=== PATIENT | male | born 1995 | race Caucasian/White ===

== ENCOUNTER 2021-10-12 19:03 | Inpatient (IN) ==
--- NOTE | 2021-10-12 19:21 | Emergency Department Note ---
History of Present Illness General Chief complaint: Dehydration Stated complaint: TRICEP& COLMENARES MUSCLE PAIN, DARK BROWN/BLACK URINE Time Seen by Provider: 10/12/21 19:14 History of Present Illness This is a 26-year-old male that presents to the emergency department via private vehicle with complaints of "triceps and pectoralis muscle pain, dark brown/black urine". The patient states that he had previously worked out quite regularly and then stopped for period of time. He then restarted exercising and notes that this past Friday he performed a fair amount of push-ups. He noted that he was sore but nothing out of the ordinary. This then progressed and is becoming worse as time progresses. He feels swelling in the pectoralis and tricep regions bilaterally. He notes that today just prior to arrival when he urinated the urine was extremely dark. He was concerned therefore prompting arrival here today. He denies any chest pain, shortness of breath or abdominal pain. He denies any pertinent past medical history or surgeries. He does note an Augmentin allergy. Home Medications Medication Instructions Recorded Confirmed Type acetaminophen 500 mg tablet 1,000 mg PO Q6H PRN 10/12/21 10/12/21 History (Tylenol Extra Strength) ibuprofen 200 mg tablet (Advil) 400 mg PO Q6H PRN 10/12/21 10/12/21 History Allergies Allergy/AdvReac Type Severity Reaction Status Date / Time amoxicillin [From Augmentin] Allergy Rash Verified 10/12/21 21:15 clavulanic acid Allergy Rash Verified 10/12/21 21:15 [From Augmentin] Past Med/Surg History Medical History No pertinent past medical history Surgical History No pertinent past surgical history Social History Smoking Status: Never smoker Preferred Language: Burkin[place] Feels Safe at Home: Yes Review of Systems A total of 10 systems reviewed and were otherwise negative Physical Exam Vital Signs Vital Signs - 24 hr 10/12/21 19:08 10/12/21 20:14 10/12/21 21:21 Temperature 36.3 C L Temperature Source Temporal Artery Scan Pulse Rate 77 Pulse Rate [Left Finger] 108 H 57 L Pulse Rhythm [Left Finger] Regular Regular Pulse Strength [Left Finger] Normal Normal Respiratory Rate 18 16 16 Respiratory Effort / Characteristics Non-Labored Spontaneous Non-Labored Non-Labored Respiratory Depth Normal Normal Normal Respiratory Pattern Regular Blood Pressure 154/93 H Blood Pressure [Right Arm] 139/91 Blood Pressure Mean 113 Blood Pressure Mean [Right Arm] 107 Blood Pressure Position Sitting Blood Pressure Position [Right Arm] Lying Pulse Oximetry 98 97 100 Oxygen Delivery Method Room Air Room Air Room Air Sepsis Recent Fever Within 48 Hours No Sepsis New/Unexplained Change in Mental Status N/A Sepsis Action Taken by Nursing No Action Required 10/12/21 22:18 Temperature Temperature Source Pulse Rate Pulse Rate [Left Finger] 65 Pulse Rhythm [Left Finger] Regular Pulse Strength [Left Finger] Normal Respiratory Rate 16 Respiratory Effort / Characteristics Non-Labored Respiratory Depth Normal Respiratory Pattern Blood Pressure Blood Pressure [Right Arm] 135/78 Blood Pressure Mean Blood Pressure Mean [Right Arm] 97 Blood Pressure Position Blood Pressure Position [Right Arm] Lying Pulse Oximetry 98 Oxygen Delivery Method Room Air Sepsis Recent Fever Within 48 Hours Sepsis New/Unexplained Change in Mental Status Sepsis Action Taken by Nursing VITAL SIGNS - Vital signs and nursing notes were reviewed. Stable and afebrile. GENERAL -26-year-old male appearing his stated age who is in no acute distress. Communicates well with provider and answers questions appropriately. SKIN - Without rashes. No meningeal or petechial rash. HEAD - NC/AT. EYES - Sclera anicteric. LUNGS - Chest wall symmetric without accessory muscle use, intercostals retractions, or central cyanosis. Normal vesicular breath sounds CTA B/L. No wheezes, rales, or rhonchi appreciated. CARDIAC - RRR with S1/S2. No murmur, rubs, or gallops appreciated. MUSCULOSKELETALthere is amount of edema noted to the pectoralis and triceps region beyond expected baseline. No evidence of compartment syndrome. Patient is well-perfused in the extremities. EXTREMITIES - No clubbing or peripheral cyanosis. NEUROLOGIC - Cranial nerves II through XII grossly intact. PSYCH - A&O, and cooperates fully with examiner. Pt is very pleasant and interacts well with examiner. Course Administered Medications Discontinued Medications Sodium Chloride (Nss 1000ml) 1,000 mls @ 999 mls/hr IV .Q1H1M LANNY Stop: 10/12/21 20:30 Last Infusion: 10/12/21 20:47 Dose: 0 mls/hr Documented by: [id number] Admin: 10/12/21 20:13 Dose: 999 mls/hr Documented by: [id number] Sodium Chloride (Nss 1000ml) 1,000 mls @ 999 mls/hr IV .Q1H1M LANNY Stop: 10/12/21 22:00 Last Infusion: 10/12/21 21:57 Dose: 0 mls/hr Documented by: [id number] Admin: 10/12/21 21:04 Dose: 999 mls/hr Documented by: [id number] Medical Decision Making Laboratory Data Result diagrams: 10/12/21 19:15 10/12/21 19:15 Lab Results 10/12/21 10/12/21 10/12/21 Range/Units 19:15 19:15 20:08 WBC 8.10 (4.8-10.8) K/uL RBC 5.15 (4.7-6.1) M/uL Hgb 15.4 (14.0-18.0) g/dL Hct 43.8 (42-52) % MCV 85.0 (80-100) fL MCH 29.9 (25-34) pg MCHC 35.2 (32-36) g/dL RDW Std Deviation 39.5 (36.4-46.3) fL RDW Coeff of Az[place] 12.8 (11.5-14.5) % Plt Count 270 (130-400) K/uL MPV 9.8 (7.4-10.4) fL Immature Gran % (Auto) 0.1 % Neut % (Auto) 50.3 % Lymph % (Auto) 40.5 % [place] % (Auto) 6.7 % Eos % (Auto) 2.3 % Baso % (Auto) 0.1 % Neut # (Auto) 4.07 (1.4-6.5) K/uL Lymph # (Auto) 3.28 (1.2-3.4) K/uL [place] # (Auto) 0.54 (0.11-0.59) K/uL Eos # (Auto) 0.19 (0-0.5) K/uL Baso # (Auto) 0.01 (0-0.2) K/uL Immature Gran # (Auto) 0.01 (0.00-0.02) K/uL Sodium 142 (136-145) mmol/L Potassium 3.7 (3.5-5.1) mmol/L Chloride 106 (98-107) mmol/L Carbon Dioxide 27 (21-32) mmol/L Anion Gap 9 (3-11) BUN 16 (6-23) mg/dl Creatinine 0.95 (0.6-1.4) mg/dl Est Cr Clr Drug Dosing 119.7 ml/min Est GFR ( Amer) 127.5 ml/min Est GFR (Non-Af Amer) 110.0 ml/min BUN/Creatinine Ratio 16.8 (10-20) Glucose 89 (70-99(Fasting)) mg/dl Calcium 9.5 (8.5-10.1) mg/dl Total Bilirubin 0.6 (0.2-1.0) mg/dl AST 685 H (13-39) U/L ALT 195 H (7-52) U/L Alkaline Phosphatase 74 (34-104) U/L Total Creatine Kinase 60772 H (30-223) U/L Total Protein 7.4 (6.0-8.3) gm/dl Albumin 4.8 (3.4-5.0) gm/dl Globulin 2.6 (2.5-4.0) gm/dl Albumin/Globulin Ratio 1.8 (0.9-2) Urine Color Urine Appearance (Clear) Urine pH (4.5-7.5) Ur Specific Harold (1.000-1.030) Urine Protein (Negative) Urine Glucose (UA) (Negative) Urine Ketones (Negative) Urine Blood (Negative) Urine Nitrite (Negative) Urine Bilirubin (Negative) Urine Urobilinogen (Negative) Ur Leukocyte Esterase (Negative) Urine WBC (Auto) (0-5) /hpf Urine RBC (Auto) (0-4) /hpf U Hyaline Cast (Auto) (0-5) /lpf U Epithel Cells (Auto) (0-5) /lpf Urine Bacteria (Auto) (Negative) SARS-CoV-2, RNA, NAAT NEGATIVE (NEGATIVE) 10/12/21 Range/Units 22:06 WBC (4.8-10.8) K/uL RBC (4.7-6.1) M/uL Hgb (14.0-18.0) g/dL Hct (42-52) % MCV (80-100) fL MCH (25-34) pg MCHC (32-36) g/dL RDW Std Deviation (36.4-46.3) fL RDW Coeff of Aziza (11.5-14.5) % Plt Count (130-400) K/uL MPV (7.4-10.4) fL Immature Gran % (Auto) % Neut % (Auto) % Lymph % (Auto) % [place] % (Auto) % Eos % (Auto) % Baso % (Auto) % Neut # (Auto) (1.4-6.5) K/uL Lymph # (Auto) (1.2-3.4) K/uL [place] # (Auto) (0.11-0.59) K/uL Eos # (Auto) (0-0.5) K/uL Baso # (Auto) (0-0.2) K/uL Immature Gran # (Auto) (0.00-0.02) K/uL Sodium (136-145) mmol/L Potassium (3.5-5.1) mmol/L Chloride (98-107) mmol/L Carbon Dioxide (21-32) mmol/L Anion Gap (3-11) BUN (6-23) mg/dl Creatinine (0.6-1.4) mg/dl Est Cr Clr Drug Dosing ml/min Est GFR ( Amer) ml/min Est GFR (Non-Af Amer) ml/min BUN/Creatinine Ratio (10-20) Glucose (70-99(Fasting)) mg/dl Calcium (8.5-10.1) mg/dl Total Bilirubin (0.2-1.0) mg/dl AST (13-39) U/L ALT (7-52) U/L Alkaline Phosphatase (34-104) U/L Total Creatine Kinase (30-223) U/L Total Protein (6.0-8.3) gm/dl Albumin (3.4-5.0) gm/dl Globulin (2.5-4.0) gm/dl Albumin/Globulin Ratio (0.9-2) Urine Color Yellow Urine Appearance Clear (Clear) Urine pH 5.5 (4.5-7.5) Ur Specific Harold 1.015 (1.000-1.030) Urine Protein 1+ H (Negative) Urine Glucose (UA) Negative (Negative) Urine Ketones Negative (Negative) Urine Blood 3+ H (Negative) Urine Nitrite Negative (Negative) Urine Bilirubin Negative (Negative) Urine Urobilinogen Negative (Negative) Ur Leukocyte Esterase Negative (Negative) Urine WBC (Auto) 1-5 (0-5) /hpf Urine RBC (Auto) 0-4 (0-4) /hpf U Hyaline Cast (Auto) 1-5 (0-5) /lpf U Epithel Cells (Auto) 5-10 H (0-5) /lpf Urine Bacteria (Auto) Negative (Negative) SARS-CoV-2, RNA, NAAT (NEGATIVE) MDM Narrative Patient was seen and evaluated as above in room D08 and then B02. Review was performed of nursing notes and vital signs. After obtaining a thorough history and physical examination the above work up was performed. Patient presents to us today status post a workout that was a few days ago now with continued and worsening pain in his musculature of the triceps and pectoralis region now with dark urine. Vital signs stable. He is nontoxic on examination. No evidence of compartment syndrome. Options of care were discussed with the patient. IV access was established. Labs were drawn. There is no evidence of kidney failure. There is elevation of [place] [address]. Urinalysis reveals 1+ protein, 3+ blood and 5-10 epithelial cells. Presentation and findings are consistent with that of rhabdomyolysis. I do believe that further evaluation and management in the inpatient setting is warranted. Covid testing negative. He was given IV fluids here in the ED. Case discussed with the hospitalist. Please refer to further documentation regarding his stay. GCS: 15 In the evaluation and treatment of this patient the following differential diagnoses were entertained: UTI, pyelonephritis, rhabdomyolysis, compartment syndrome, electrolyte disturbance, kidney failure, among others. Impression & Plan Rhabdomyolysis Discharge Plan Visit Data Chief Complaint: Dehydration Stated Complaint: TRICEP& COLMENARES MUSCLE PAIN, DARK BROWN/BLACK URINE ED Provider: Hema Leo ED Midlevel Provider: Gregory Villalba Discharge Problem: Rhabdomyolysis Patient Disposition: Admitted As Inpatient Condition: Good Forms Stand Alone Forms: My [facility] Prescriptions Prescriptions: No Action acetaminophen [Tylenol Extra Strength] 500 mg Tablet 1,000 mg PO Q6H PRN (Reason: Pain) RF: 0 ibuprofen [Advil] 200 mg Tablet 400 mg PO Q6H PRN (Reason: Pain) RF: 0 Referrals Referrals: PCP,NO [Primary Care Provider] -
[2021-10-12 19:29] LABS: Basophils # (auto) 0.01 K/uL (0-0.2); Basophils % (auto) 0.1 %; Eosinophils # (auto) 0.19 K/uL (0-0.5); Eosinophils % (auto) 2.3 %; Hematocrit (blood only) 43.8 % (42-52); Hemoglobin 15.4 g/dL (14.0-18.0); Immature Granulocytes # (auto) 0.01 K/uL (0.00-0.02); Immature Granulocytes % (auto) 0.1 %; Lymphocytes # (auto) 3.28 K/uL (1.2-3.4); Lymphocytes % (auto) 40.5 %; Mean Corpuscular Hemoglobin 29.9 pg (25-34); Mean Corpuscular Hgb Conc 35.2 g/dL (32-36); Mean Platelet Volume 9.8 fL (7.4-10.4); Monocytes # (auto) 0.54 K/uL (0.11-0.59); Monocytes % (auto) 6.7 %; Neutrophils # (auto) 4.07 K/uL (1.4-6.5); Neutrophils % (auto) 50.3 %; Platelet Count 270 K/uL (130-400); RDW Coefficient of Variation 12.8 % (11.5-14.5); RDW Standard Deviation 39.5 fL (36.4-46.3); Red Blood Count 5.15 M/uL (4.7-6.1)
[2021-10-12] MEDS ORDERED: SODIUM CHLORIDE 0.9% 1000ML 1,000 ML IV SCH ×2 (19:30→21:00)
[2021-10-12 19:47] LABS: BUN Creatinine Ratio 16.8 (10-20); Calcium 9.5 mg/dl (8.5-10.1); Creatinine Clr Calc Pharmacy 119.7 ml/min; Est GFR (African American) 127.5 ml/min; Potassium 3.7 mmol/L (3.5-5.1)
[2021-10-12 20:36] LABS: Albumin Globulin Ratio 1.8 (0.9-2); Albumin Level 4.8 gm/dl (3.4-5.0); Bilirubin,Total 0.6 mg/dl (0.2-1.0); Globulin 2.6 gm/dl (2.5-4.0); Total Protein 7.4 gm/dl (6.0-8.3)
[2021-10-12 22:24] LABS: Appearance Urine Clear (Clear); Bacteria Urine Automated Negative (Negative); Bilirubin Urine Negative (Negative); Blood Urine 3+ (Negative); Color Urine Yellow; Glucose Urine UA Negative (Negative); Ketones Urine Negative (Negative); Leukocyte Esterase Urine Negative (Negative); Nitrite Urine Negative (Negative); Protein Urine 1+ (Negative); RBC Urine Automated 0-4 /hpf (0-4); Specific Gravity Urine 1.015 (1.000-1.030); Urobilinogen Urine Negative (Negative); pH Urine 5.5 (4.5-7.5)
[2021-10-13] MEDS: SODIUM CHLORIDE 0.9% 1000ML 1,000 ML IV SCH ×7 (00:28→22:19)
--- NOTE | 2021-10-13 01:02 | History and Physical Report ---
DATE OF ADMISSION: 10/12/2021. CHIEF COMPLAINT: Triceps muscle pain, dark brown urine. HISTORY OF PRESENT ILLNESS: This is a 26-year-old male with no significant past medical history, comes because of dark urine and also triceps muscle pain. The patient says he exercised at his home a few days back and he developed some aches and pains. He was taking [id number] Tylenol and ibuprofen and today noticed dark urine, which is why he came to the ER and found to have elevated CK in 50,000. Kidney function is okay. His AST and ALT are also elevated. Currently, resting comfortably and hemodynamically stable. Received 2 liters of fluid in the ER. Denies any headache. No blurred visions, no earache, no runny nose, no sore throat, no cough, no fevers, no chest pain, no shortness of breath. Eating and drinking okay. Since afternoon, he did not eat anything today. No nausea, no vomiting, no abdominal pain. Normal bowel and bladder movements. No swelling in the legs. Otherwise is active. ALLERGIES: AUGMENTIN. PAST MEDICAL HISTORY: None. PAST SURGICAL HISTORY: None. FAMILY HISTORY: Nothing significant as per the patient. SOCIAL HISTORY: No smoking history. Alcohol rarely. No drug use. REVIEW OF SYSTEMS: As per HPI. Rest of the review of systems is negative. PHYSICAL EXAMINATION: GENERAL: The patient is of moderate build, not in acute distress. VITAL SIGNS: Temperature 36.3, pulse 65, respiratory rate 16, blood pressure 135/78, oxygen 98% on room air. HEENT: Pupils equal, round, and reactive to light. Oral mucosa moist. NECK: No JVD, no neck masses. CARDIOVASCULAR: S1 and S2 heard. Regular rate and rhythm. No murmur, no gallop. RESPIRATORY SYSTEM: Normal AP diameter. No accessory muscle use. No wheezing, no crackles. ABDOMEN: Soft, bowel sounds present, nontender, no distention. CENTRAL NERVOUS SYSTEM: Cranial nerves II-XII grossly intact, nonfocal. EXTREMITIES: No edema, no erythema. LABORATORY DATA: WBC 8.1, hemoglobin 15.4, hematocrit 43.8, platelets 270. Sodium 142, potassium 3.7, chloride 106, bicarb 27, BUN 16, creatinine 0.9, serum glucose 89, calcium 9.5, total bilirubin 0.6, AST 685, ALT 195, alkaline phosphatase 74, total creatine kinase 59,050. Urinalysis, +1 protein, +3 blood, SARS-CoV-2 RNA negative. ASSESSMENT AND PLAN: This is a 26-year-old male who presents with rhabdomyolysis. 1. Rhabdomyolysis: The patient did exercise at home few days back and had muscle aches and also dark urine and [place] [address]. Kidney function is okay. Aggressive fluids. Received 2 liters of fluid in the ER. Will continue with IV normal saline at 300 mL per hour. Follow the repeat CK levels and closely monitor in the medical floor.Follow LFTS. Monitor urine output. 2. Deep venous thrombosis prophylaxis: Sequential compression devices for now. DISPOSITION: Closely monitor in medical floor. Expect to discharge home and follow with family doctor. Job ID: [id number] [facility]
[2021-10-13 07:10] LABS: Basophils # (auto) 0.01 K/uL (0-0.2); Basophils % (auto) 0.2 %; Eosinophils # (auto) 0.15 K/uL (0-0.5); Eosinophils % (auto) 2.7 %; Hemoglobin 12.9 g/dL (14.0-18.0); Lymphocytes # (auto) 2.07 K/uL (1.2-3.4); Lymphocytes % (auto) 37.6 %; Mean Corpuscular Hemoglobin 29.7 pg (25-34); Mean Corpuscular Hgb Conc 34.9 g/dL (32-36); Mean Corpuscular Volume 85.1 fL (80-100); Mean Platelet Volume 9.9 fL (7.4-10.4); Monocytes # (auto) 0.43 K/uL (0.11-0.59); Monocytes % (auto) 7.8 %; Neutrophils # (auto) 2.84 K/uL (1.4-6.5); Neutrophils % (auto) 51.7 %; Platelet Count 197 K/uL (130-400); RDW Coefficient of Variation 12.9 % (11.5-14.5); RDW Standard Deviation 40.2 fL (36.4-46.3); Red Blood Count 4.35 M/uL (4.7-6.1)
[2021-10-13 07:38] LABS: Albumin Level 3.6 gm/dl (3.4-5.0); BUN Creatinine Ratio 12.8 (10-20); Bilirubin Direct 0.1 mg/dl (0-0.2); Bilirubin,Total 0.7 mg/dl (0.2-1.0); Creatinine Clr Calc Pharmacy 162.2 ml/min; Est GFR (African American) 144.4 ml/min; Est GFR (Non-African American) 124.6 ml/min; Magnesium 1.8 mg/dl (1.7-2.4); Potassium 3.8 mmol/L (3.5-5.1); Total Protein 5.7 gm/dl (6.0-8.3)
[2021-10-13] MEDS ORDERED: Nursing to Pharmacy Communication SCH (10:15)
--- NOTE | 2021-10-13 14:18 | Hospitalist Progress Note ---
Date of Service October 13, 2021 Assessment & Plan Plan: Non traumatic Rhabdomyolysis -from overuse injury (exercising) -CK 59,000--> 58,000 -continue aggressive IVF, currently 300 cc/hr--> if CK down trends tomorrow, can reduce IVF rate. For now continue Anemia -Unclear chronicity -acute drop in Hb likely dilutional. No signs of active bleed Transaminitis -stable, no RUQ pain -due to rhabdo Admission and Anticipated Discharge Date Admission Date: October 12, 2021 Subjective Patient feels well Arms less sore and less tight Tolerating diet Urinating pale yellow urine Physical Exam Physical Exam: Appears well nourished, pleasant, comfortable Respiratory: breathing comfortably on room air, no wheezing/rhonchi/rales Cardiovascular: regular rate and rhythm, no murmurs/rubs/gallops Gastrointestinal (Abdomen): soft, non tender Musculoskeletal: bilateral upper arms are tender, mildly swollen but not tight Bilateral radial pulses are present Neurologic: awake, alert, spontaneously moving extremities Psychiatric: affect normal, speech linear, non pressure Results & Data Results & Data ([facility]) Vital Signs (Past 12 Hours) Vital Signs Temp Pulse Resp BP Pulse Ox 10/13/21 07:40 36.5 C 51 L 20 120/72 98
[2021-10-13 15:21] LABS: BUN Creatinine Ratio 9.5 (10-20); Calcium 8.5 mg/dl (8.5-10.1); Creatinine Clr Calc Pharmacy 150.6 ml/min; Est GFR (African American) 140.1 ml/min; Est GFR (Non-African American) 120.8 ml/min; Potassium 4.1 mmol/L (3.5-5.1)
[2021-10-14] MEDS: SODIUM CHLORIDE 0.9% 1000ML 1,000 ML IV SCH ×3 (01:29→07:58)
[2021-10-14 06:31] LABS: BUN Creatinine Ratio 10.8 (10-20); Calcium 8.5 mg/dl (8.5-10.1); Est GFR (African American) 147.5 ml/min; Est GFR (Non-African American) 127.3 ml/min; Potassium 4.2 mmol/L (3.5-5.1)
[2021-10-14] MEDS: LACTATED RINGER'S 1,000 ML IV SCH ×4 (09:14→20:53)
--- NOTE | 2021-10-14 12:24 | Hospitalist Progress Note ---
Date of Service October 14, 2021 Assessment & Plan Plan: Non traumatic Rhabdomyolysis -from overuse injury (exercising) -CK 59,000--> 58,000--> 47,000 -continue IVF, change to LR at 250 cc/hr Hyperchloremia -d/c NSS, start LR at 250 cc/hr Anemia -Unclear chronicity -acute drop in Hb likely dilutional. No signs of active bleed Transaminitis -stable, no RUQ pain -due to rhabdo DVT ppx Ambulation, patient gets up throughout day to use restroom, walks around his r oom, walks around unit Admission and Anticipated Discharge Date Admission Date: October 12, 2021 Subjective Feels well. Bilateral upper arms still sore but less stiff Tolerating diet No urinary problems. No diarrhea/constipation Physical Exam Physical Exam: Well nourished, appears stated age, eating lunch Respiratory: breathing comfortably on room air, no wheezing/rhonchi/rales Cardiovascular: regular rate and rhythm, no murmurs/rubs/gallops Gastrointestinal (Abdomen): soft, non tender Musculoskeletal: upper arms mildly swollen but not rigid Neurologic: awake, alert, spontaneously moving extremities Results & Data Results & Data ([facility]) Vital Signs (Past 12 Hours) Vital Signs Temp Pulse Resp BP Pulse Ox 10/14/21 07:53 36.6 C 52 L 20 113/65 98 Laboratory Results [facility] 10/13/21 10/14/21 14:30 05:25 Sodium 141 140 Potassium 4.1 4.2 Chloride 110 H 112 H Carbon Dioxide 26 25 BUN 8 8 Creatinine 0.84 0.74 Glucose 92 98 Calcium 8.5 8.5 Cardiac Enzymes 10/13/21 10/14/21 Range/Units 14:30 05:25 Total Creatine Kinase 72330 H 70099 H (30-223) U/L Medications Administered Current Inpatient Medications Lactated Ringer's (Lr) 1,000 mls @ 250 mls/hr IV .Q4H LANNY Stop: 11/13/21 08:44 Last Admin: 10/14/21 09:14 Dose: 250 mls/hr Documented by:
[2021-10-15] MEDS: LACTATED RINGER'S 1,000 ML IV SCH ×6 (01:14→20:53)
[2021-10-15 08:06] LABS: BUN Creatinine Ratio 13.7 (10-20); Calcium 9.1 mg/dl (8.5-10.1); Creatinine Clr Calc Pharmacy 173.3 ml/min; Est GFR (African American) 148.4 ml/min; Potassium 4.1 mmol/L (3.5-5.1)
--- NOTE | 2021-10-15 16:57 | Hospitalist Progress Note ---
Date of Service October 15, 2021 Assessment & Plan Plan: Non traumatic Rhabdomyolysis -from overuse injury (exercising) -CK 59,000--> 58,000--> 47,000--> 37,000 -continue LR at 250 cc/hr Hyperchloremia -resolved with fluid change to LR Anemia -Unclear chronicity -acute drop in Hb likely dilutional. No signs of active bleed Transaminitis -stable, no RUQ pain -due to rhabdo DVT ppx Ambulation, patient gets up throughout day to use restroom, walks around his room, walks around unit Likely discharge home tomorrow if CK continues to down trend Admission and Anticipated Discharge Date Admission Date: October 12, 2021 Anticipated date of discharge: 10/16/21 Subjective Doing well. No issues overnight. Less bilateral arm pain Physical Exam Physical Exam: Well nourished, appears stated age Respiratory: breathing comfortably on room air, no wheezing/rhonchi/rales Cardiovascular: regular rate and rhythm, no murmurs/rubs/gallops Gastrointestinal (Abdomen): soft, non tender Musculoskeletal: bilateral upper arm mildly tender and swollen but not tense Neurologic: awake, alert, spontaneously moving extremities Results & Data Results & Data ([facility]) Vital Signs (Past 12 Hours) Vital Signs Temp Pulse Resp BP Pulse Ox 10/15/21 14:09 36.6 C 59 L 16 148/62 H 99 10/15/21 07:40 36.7 C 55 L 16 114/69 100 Laboratory Results [facility] 10/15/21 07:05 Sodium 141 Potassium 4.1 Chloride 107 Carbon Dioxide 30 BUN 10 Creatinine 0.73 Glucose 88 Calcium 9.1 Cardiac Enzymes 10/15/21 Range/Units 07:05 Total Creatine Kinase 30944 H (30-223) U/L Medications Administered Current Inpatient Medications Lactated Ringer's (Lr) 1,000 mls @ 250 mls/hr IV .Q4H LANNY Stop: 11/13/21 08:44 Last Admin: 10/15/21 13:08 Dose: 250 mls/hr Documented by:
[2021-10-16] MEDS: LACTATED RINGER'S 1,000 ML IV SCH ×3 (01:00→08:54)
[2021-10-16 07:37] VITALS: PULSE 45; TEMP 98.1; O2SAT 100
[2021-10-16 07:53] LABS: Anion Gap 3 (3-11); BUN Creatinine Ratio 12.7 (10-20); Blood Urea Nitrogen 9 mg/dl (6-23); Calcium 9.2 mg/dl (8.5-10.1); Carbon Dioxide 31 mmol/L (21-32); Chloride 106 mmol/L (98-107); Creatinine Clr Calc Pharmacy 178.2 ml/min; Est GFR (African American) > 150.0 ml/min; Est GFR (Non-African American) 129.5 ml/min; Glucose 88 mg/dl (70-99(Fasting)); Potassium 4.2 mmol/L (3.5-5.1); Sodium 140 mmol/L (136-145)
[2021-10-16 08:27] LABS: Creatine Kinase 24554 U/L (30-223)
--- NOTE | 2021-10-16 09:58 | Discharge Summary ---
Date of Service October 16, 2021 Admission HPI Per Admitting Provider HISTORY OF PRESENT ILLNESS: This is a 26-year-old male with no significant past medical history, comes because of dark urine and also triceps muscle pain. The patient says he exercised at his home a few days back and he developed some aches and pains. He was taking [id number] Tylenol and ibuprofen and today noticed dark urine, which is why he came to the ER and found to have elevated CK in 50,000. Kidney function is okay. His AST and ALT are also elevated. Currently, resting comfortably and hemodynamically stable. Received 2 liters of fluid in the ER. Denies any headache. No blurred visions, no earache, no runny nose, no sore throat, no cough, no fevers, no chest pain, no shortness of breath. Eating and drinking okay. Since afternoon, he did not eat anything today. No nausea, no vomiting, no abdominal pain. Normal bowel and bladder movements. No swelling in the legs. Otherwise is active. Admission Exam Per Admitting Provider PHYSICAL EXAMINATION: GENERAL: The patient is of moderate build, not in acute distress. VITAL SIGNS: Temperature 36.3, pulse 65, respiratory rate 16, blood pressure 135/78, oxygen 98% on room air. HEENT: Pupils equal, round, and reactive to light. Oral mucosa moist. NECK: No JVD, no neck masses. CARDIOVASCULAR: S1 and S2 heard. Regular rate and rhythm. No murmur, no gallop. RESPIRATORY SYSTEM: Normal AP diameter. No accessory muscle use. No wheezing, no crackles. ABDOMEN: Soft, bowel sounds present, nontender, no distention. CENTRAL NERVOUS SYSTEM: Cranial nerves II-XII grossly intact, nonfocal. EXTREMITIES: No edema, no erythema. Principal Diagnosis Nontraumatic rhabdomyolysis Transaminitis Anemia Discharge Exam Gen: WD/WN, male, standing up in room, NAD, A&O x3 HEENT: Normocephalic, atraumatic, conjunctivae moist, sclerae anicteric, mucous membranes moist. Lung: Clear to Auscultation bilaterally, no wheezes/rales/rhonchi Heart: Regular rate, regular rhythm, no murmurs, rubs, or gallops Abdomen: Soft, NT, ND +BS x 4 Extremities: No edema, active range of motion x4 Skin: Warm, no rash, negative turgor. Discharge Data Allergies Allergy/AdvReac Type Severity Reaction Status Date / Time amoxicillin [From Augmentin] Allergy Rash Verified 10/12/21 21:15 clavulanic acid Allergy Rash Verified 10/12/21 21:15 [From Augmentin] Consultations 10/12/21 21:13 ED Decision to Admit Stat Ordered Studies Abnormal Labs 10/12/21 10/12/21 10/13/21 19:15 22:06 06:48 RBC Hgb Hct Chloride 112 H BUN/Creatinine Ratio Calcium 8.0 L AST 685 H 591 H ALT 195 H 182 H Total Creatine Kinase 01315 H 50464 H Total Protein 5.7 L D Urine Protein 1+ H Urine Blood 3+ H U Epithel Cells (Auto) 5-10 H 10/13/21 10/13/21 10/14/21 06:48 14:30 05:25 RBC 4.35 L Hgb 12.9 L Hct 37.0 L Chloride 110 H 112 H BUN/Creatinine Ratio 9.5 L Calcium AST ALT Total Creatine Kinase 14373 H 81862 H Total Protein Urine Protein Urine Blood U Epithel Cells (Auto) 10/15/21 10/16/21 07:05 06:50 RBC Hgb Hct Chloride BUN/Creatinine Ratio Calcium AST ALT Total Creatine Kinase 52260 H 33999 H Total Protein Urine Protein Urine Blood U Epithel Cells (Auto) Hospital Course (1) Rhabdomyolysis: This is a 26-year-old male who presented to ED secondary to tricep pain as well as dark-colored urine. He was found to have major elevation of CK greater than 59,000 and transaminitis with AST of 695 and ALT of 195. He was diagnosed with acute rhabdomyolysis. Fortunately patient's renal function remained normal. It was felt that his acute on myelosis may have been secondary to overuse injury and exercising. He was placed on IV LR at 250/h. His CK levels gradually improved and on day of discharge was 24,000. His muscle pain has completely resolved and he has no difficulty urinating. Urine color has returned to clear/yellow. On day of discharge he is standing up in his room and ambulating without difficulty. He denies any muscle pain or weakness. He is tolerating diet. He is educated absolutely no exercise or heavy lifting until CK level returns to normal when he follows up with PCP. He is recommended to perform light duty at work and lifting greater than 5 pounds. He is also recommended to abstain from alcohol due to elevated liver functions and may repeat liver function test at discharge. He is to remain well-hydrated recommend he stay to 100 ounces of noncaffeinated/nonalcoholic beverages daily including Pedialyte. RECOMMENDATIONS FOR FOLLOW-UP: Please follow-up with PCP as scheduled on 10/23/21 @ 11:00 a.m. Please arrive 15 minutes prior to scheduled appointment. This was included in your work excuse as well. At your follow-up appointment you will need repeat lab work, CBC, CMP and CK levels. Please make sure your family doctor orders this. Absolutely no exercising, weight lifting or lifting greater than 5 pounds until you follow-up with PCP and muscle enzymes (CK level) are redrawn. You are able to return back to work on 10/18/2021 with light duty restrictions. Absolutely no lifting greater than 5 pounds till cleared by family doctor. Absolutely no alcohol use until your Liver Functions and Muscle enzymes return to normal. Please stay well-hydrated drinking at least 80 to 100 ounces of noncaffeinated/nonalcoholic beverages daily. Also recommend beverages such as Gatorade or Pedialyte for electrolyte replacement. If your symptoms worsen or return please contact PCP or seek ED immediately. Total Time Total Time Spent Total Time Spent (In Minutes): 35 minutes Total Time Includes: Examination of the Patient, Discharge Planning, Medication Reconciliation, Communication With Other Providers and Other Discharge Plan Discharge Items Patient Disposition: Home - Self-Care Reason For Visit: DEHYDRATION Discharge Diagnosis: Non traumatic Rhabdomyolysis - improving Hyperchloremia - resolved Anemia - likely dilutional from IV fluid Condition on Discharge: Good Activity: Per Instructions section Activity Comment: No Exercise or Physical Activity until cleared by your Primary Care Provide Lifting: None Bathing: No limitations Exercise/Sports: None Driving/Machine Use: No limitations Weightbearing: Full weightbearing Non-emergency contact: Primary Care Provider Call non-emergency contact if: you have any medication questions, your symptoms worsen, your pain is not controlled, your pain is worsening, your pain is unusual for you, your pain is concerning for you, you have a fever and your temperature is above 101 Follow-up/Referrals: Monica Vasques DO [Outside Practitioners] - (Date & Time 10/23/2021 11:00 AM Provider Monica Vasqeus, Department [facility] ) PCP,NO [Primary Care Provider] - Diet: Regular Addtl Attending Provider Instructions: MEDICATION CHANGES: No medication changes. Avoid Tylenol for now until follow up with PCP due to elevated liver functions. SUMMARY OF TEST RESULTS: You are admitted to hospital due to elevated CK levels and liver functions. You were diagnosed with rhabdomyolysis. It was felt to be secondary to exercise and exertion. It may also be due to Alcohol use. PENDING TEST RESULTS: None RECOMMENDATIONS FOR FOLLOW-UP: Please follow-up with PCP as scheduled on 10/23/21 @ 11:00 a.m. Please arrive 15 minutes prior to scheduled appointment. This was included in your work excuse as well. At your follow-up appointment you will need repeat lab work, CBC, CMP and CK levels. Please make sure your family doctor orders this. Absolutely no exercising, weight lifting or lifting greater than 5 pounds until you follow-up with PCP and muscle enzymes (CK level) are re checked. You are able to return back to work on 10/18/2021 with light duty restrictions. Absolutely no lifting greater than 5 pounds till cleared by family doctor. You will need to be excused 10/23 to go to Primary Care Provider follow up. Absolutely no alcohol use until your Liver Functions and Muscle enzymes return to normal. Please stay well-hydrated drinking at least 80 to 100 ounces of noncaffeinated/nonalcoholic beverages daily. Also recommend beverages such as Gatorade or Pedialyte for electrolyte replacement. If your symptoms worsen or return please contact PCP or seek ED immediately. OTHER INSTRUCTIONS: Seek medical attention if you have: * temperature above 101 * chest pain or trouble breathing * abdominal pain, nausea, vomiting * diarrhea, dark stools or bloody stools * any unanswered questions or concerns Call 911 if symptoms are severe. Please take good care of yourself. It has been a pleasure taking care of you. Please take care of yourself. If you have any questions regarding your recent hospitalization please contact [facility] and request Stacie Reaganist @ [phone]. Juanita Perez PA-C Pending Studies at Discharge: No Stand-Alone Forms: My [facility], Work/School Release, Smoking Cessation Medications and DC Order Prescriptions: Discontinued acetaminophen [Tylenol Extra Strength] 500 mg Tablet 1,000 mg PO Q6H PRN (Reason: Pain) RF: 0 ibuprofen [Advil] 200 mg Tablet 400 mg PO Q6H PRN (Reason: Pain) RF: 0 Discharge Orders: Discharge Order (Routine); Ordered 10/16/21 Ordered By: Juanita Calix/Other Patient Handouts: Rhabdomyolysis Admission Data Admit Date/Time: 10/12/21 22:54 Attending Provider: Afshin Aguilar Admit Provider: Ted Mccarthy Primary Care Provider: PCP,NO Other Providers: Ted Mccarthy ; Juanita Perez
[2021-10-16 11:32] VITALS: BP 113/65
== END 2021-10-16 13:56 | disposition home or self-care (01) | DRG 558 ==
LOC: ED 19:03 → 3W 22:54